=== PATIENT | female | born 1995 | race Two or more races ===

== ENCOUNTER 2018-06-30 00:20 | Emergency (ER) | payer SELFPAY ==
[~2018-06-30] VITALS: Ht 172.7 cm; Wt 60.0 kg
[2018-06-30 01:56] LABS: BASOPHILS % 0.9 % (0.0-2.0); EOSINOPHILS % 0.3 % (0.0-5.0); HEMATOCRIT. 37.2 % (36.0-48.0); HEMOGLOBIN. 12.8 g/dL (12.0-16.0); MEAN CORPUSCULAR HEMOGLOBIN 31.7 pg (28.0-32.0); MEAN CORPUSCULAR VOLUME 92.4 fL (81.0-99.0); MONOCYTES % 8.8 % (2.0-8.0); PLATELET 248 x1000/uL (130-400); RED BLOOD CELL COUNT 4.02 mill/uL (4.2-5.4); RED CELL DISTRIBUTION WIDTH 12.9 % (11.6-14.6)
[2018-06-30] MEDS ORDERED: ONDANSETRON HCL 4MG/2ML INJ IV STA (02:13)
[2018-06-30 05:09] VITALS: BP 115/72
== END 2018-06-30 05:12 | disposition home or self-care (01) ==
LOC: ER 00:20
DX: F10.229 Alcohol dependence with intoxication, unspecified (principal); Y90.8 Blood alcohol level of 240 mg/100 ml or more
CPT/HCPCS: 36415; 82962; 85025; 96374; 99284; G0482; Z7610